=== PATIENT | male | born 1995 | race Caucasian/White ===

== ENCOUNTER 2019-03-28 08:20 | Emergency (ER) | payer MEDICAID ==
[~2019-03-28] VITALS: Ht 172.7 cm; Wt 118.8 kg
[2019-03-28] MEDS ORDERED: NASAL SPRAY30 M1 NASAL (08:30)
[2019-03-28] MEDS ORDERED: CLARITIN10 M3 PO (08:30)
[2019-03-28] MEDS ORDERED: LICE TREATMENT59 ML TOP (08:41)
[2019-03-28 09:06] VITALS: BP 132/90
== END 2019-03-28 09:07 | disposition home or self-care (01) ==
LOC: M.ERS 08:20
DX: Z20.7 Contact with and (suspected) exposure to pediculosis, acariasis and other infestations (principal); Z91.041 Radiographic dye allergy status